=== PATIENT | female | born 2005 | race Caucasian/White ===

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

== ENCOUNTER 2023-02-06 22:25 | Emergency (ER) | payer OTHER, MEDICAID ==
--- NOTE | 2023-02-06 23:38 | ED ---
General Adult HPI - General Source: patient, RN notes reviewed Mode of arrival: ambulatory Limitations: no limitations <Minerva Colon - Last Filed: 02/07/23 01:39> <Waldemar Hargrove - Last Filed: 02/07/23 14:27> <Darren Carter - Last Filed: 02/07/23 20:38> - General Chief complaint: Psychiatric Symptoms Stated complaint: Mental Health Time Seen by Provider: 02/06/23 23:13 - History of Present Illness Initial comments: 17-year-old female with no significant past medical history presents the emergency department with a chief complaint of psychiatric evaluation. Patient reports increased stress at home regarding her family. She reports that she would like a psychiatric evaluation to prove that she is safe to go home. She denies any suicidal or homicidal ideation. Denies visual or auditory hallucinations. Denies illicit drug use. Denies recent alcohol use. She does endorse having occasional nausea however she attributes this to stress. (Minerva Colon) - Related Data Home Medications Medication Instructions Recorded Confirmed No Known Home Medications 09/09/22 02/07/23 Allergies Allergy/AdvReac Type Severity Reaction Status Date / Time diclofenac Allergy Rash/Hives Verified 02/07/23 08:21 egg Allergy Unknown Verified 02/07/23 08:21 Penicillins Allergy Unknown Verified 02/07/23 08:21 Childhood cortisone AdvReac "lost Verified 02/07/23 08:21 pigment at injection site" prednisone AdvReac aggressive Verified 02/07/23 08:21 Review of Systems ROS Other: All systems not noted in ROS Statement are negative. <Minerva Colon - Last Filed: 02/07/23 01:39> ROS Other: All systems not noted in ROS Statement are negative. <Waldemar Hargrove - Last Filed: 02/07/23 14:27> ROS Other: All systems not noted in ROS Statement are negative. <Darren Carter - Last Filed: 02/07/23 20:38> ROS Statement: Those systems with pertinent positive or pertinent negative responses have been documented in the HPI. Past Medical History Past Medical History: No Reported History History of Any Multi-Drug Resistant Organisms: None Reported Past Surgical History: Ear Surgery Past Anesthesia/Blood Transfusion Reactions: No Reported Reaction Additional Past Anesthesia/Blood Transfusion Reaction / Comment(s): "WOKE UP EARLY" Past Psychological History: Anxiety, Depression Smoking Status: Never smoker Past Alcohol Use History: None Reported Past Drug Use History: Marijuana - Past Family History Mother Family Medical History: Deep Vein Thrombosis (DVT) Additional Family Medical History / Comment(s): AND MATERNAL GRANDFATHER <Minerva Colon - Last Filed: 02/07/23 01:39> General Exam Limitations: no limitations <Minerva Colon - Last Filed: 02/07/23 01:39> - General Exam Comments Initial Comments: General: Alert, in no acute distress Head: atraumatic normocephalic. Eyes PERRL, EOMI intact, mucous membranes moist Respiratory: Lungs clear to auscultation bilaterally Cardiovascular: Heart rate regular rate and rhythm Abdominal: Soft without guarding or rebound Extremities: Normal inspection with full range of motion and normal capillary refill Neuroogic: alert and oriented 3, CN II-XII intact, able to ambulate with steady gait Skin: warm dry and intact with normal color (Minerva Colon) Course <Minerva Colon - Last Filed: 02/07/23 01:39> Vital Signs 02/06/23 02/07/23 02/07/23 22:26 07:05 13:34 Temperature 98.4 F 98.6 F 98.6 F Pulse Rate 65 46 L 85 Respiratory 16 19 18 Rate Blood Pressure 194/108 115/75 117/65 O2 Sat by Pulse 99 98 99 Oximetry 02/07/23 19:58 Temperature 98.4 F Pulse Rate 98 Respiratory 18 Rate Blood Pressure 118/82 O2 Sat by Pulse 99 Oximetry - Reevaluation(s) Reevaluation #1: 02/07/23 12:15 patient medically cleared. Patient agreeable with the plan for awaiting psychiatric evaluation when the EPS nurse in the AM. (Minerva Colon) Medical Decision Making <Minerva Colon - Last Filed: 02/07/23 01:39> - Lab Data Result diagrams: 02/07/23 16:27 02/07/23 16:27 <Darren Carter - Last Filed: 02/07/23 20:38> - Medical Decision Making Was pt. sent in by a medical professional or institution (, PA, [facility], urgent care, hospital, or [facility]...) When possible be specific @ -[No] Did you speak to anyone other than the patient for history (EMS, parent, family, police, friend...)? What history was obtained from this source @ -[No] Did you review nursing and triage notes (agree or disagree)? Why? @ -[I reviewed and agree with nursing and triage notes] Were old charts reviewed (outside hosp., previous admission, EMS record, old EKG, old radiological studies, urgent care reports/EKG's, [facility] records)? Report findings @ -[No old charts were reviewed] Differential Diagnosis (chest pain, altered mental status, abdominal pain women, abdominal pain men, vaginal bleeding, weakness, fever, dyspnea, syncope, headache, dizziness, GI bleed, back pain, seizure, CVA, palpatations, mental health, musculoskeletal)? @ -[not applicable] EKG interpreted by me (3pts min.). @ -[As above] X-rays interpreted by me (1pt min.). @ -[None done] CT interpreted by me (1pt min.). @ -[None done] U/S interpreted by me (1pt. min.). @ -[None done] What testing was considered but not performed or refused? (CT, X-rays, U/S, labs)? Why? @ -[None] What meds were considered but not given or refused? Why? @ -[None] Did you discuss the management of the patient with other professionals ( professionals i.e. , PA, [facility], lab, RT, psych nurse, social media editor, riding double, teacher, senior vice president and chief information officer, rn field case manager)? Give summary @ -[No] Was smoking cessation discussed for >3mins.? @ -[No] Was critical care preformed (if so, how long)? @ -[No] Were there social determinants of health that impacted care today? How? (Homelessness, low income, unemployed, alcoholism, drug addiction, t ransportation, low edu. Level, literacy, decrease access to med. care, long term, rehab)? @ -[No] Was there de-escalation of care discussed even if they declined (Discuss DNR or withdrawal of care, Hospice)? DNR status @ -[No] What co-morbidities impacted this encounter? (DM, HTN, Smoking, COPD, CAD, Cancer, CVA, ARF, Chemo, Hep., AIDS, mental health diagnosis, sleep apnea, morbid obesity)? @ -[None] Was patient admitted / discharged? Hospital course, mention meds given and route, prescriptions, significant lab abnormalities, going to OR and other pertinent info. @ -Disposition pending. This is a 17-year-old female who presents the emergency department with psychiatric evaluation. Patient had a thorough history and physical exam performed which was unremarkable. Heart rate regular rate and rhythm, lungs clear to auscultation bilaterally abdomen soft nontender patient agreeable with the plan to await EPS evaluation in the a.m. Discussed with SERA Batres who agrees with the plan of care. (Minerva Colon) Patient seen by mental health services plans for admission or transfer for psychiatric inpatient care. Patient reevaluated by myself. Positive clinical certificate completed. Diagnosis: Depression Acute (Darren Carter) - Lab Data Lab Results 02/07/23 02/07/23 02/07/23 Range/Units 12:35 12:35 16:27 WBC 9.8 (4.0-11.0) k/uL RBC 4.71 (3.80-5.40) m/uL Hgb 14.5 (11.4-16.0) gm/dL Hct 42.8 (34.0-46.0) % MCV 90.9 (80.0-100.0) fL MCH 30.9 (25.0-35.0) pg MCHC 33.9 (31.0-37.0) g/dL RDW 12.3 (11.5-15.5) % Plt Count 297 (150-450) k/uL MPV 7.9 Neutrophils % (Manual) 49 % Lymphocytes % (Manual) 38 % Monocytes % (Manual) 9 % Eosinophils % (Manual) 4 % Neutrophils # (Manual) 4.80 (1.3-7.7) k/uL Lymphocytes # (Manual) 3.72 (1.0-4.8) k/uL Monocytes # (Manual) 0.88 (0-1.0) k/uL Eosinophils # (Manual) 0.39 (0-0.7) k/uL Nucleated RBCs 0 (0-0) /100 WBC Manual Slide Review Performed Reactive Lymphocytes Present Sodium (137-145) mmol/L Potassium (3.5-5.1) mmol/L Chloride (98-107) mmol/L Carbon Dioxide (22-30) mmol/L Anion Gap mmol/L BUN (7-17) mg/dL Creatinine (0.52-1.04) mg/dL Est GFR (CKD-EPI)AfAm (>60 ml/min/1.73 sqM) Est GFR (CKD-EPI)NonAf (>60 ml/min/1.73 sqM) Glucose (74-99) mg/dL Calcium (8.4-10.2) mg/dL Total Bilirubin (0.2-1.3) mg/dL AST (14-36) U/L ALT (4-34) U/L Alkaline Phosphatase (38-126) U/L Total Protein (6.3-8.2) g/dL Albumin (3.5-5.0) g/dL Urine Color Yellow Urine Appearance Cloudy H (Clear) Urine pH 6.5 (5.0-8.0) Ur Specific [place] 1.017 (1.001-1.035) Urine Protein Trace H (Negative) Urine Glucose (UA) Negative (Negative) Urine Ketones Negative (Negative) Urine Blood Negative (Negative) Urine Nitrite Negative (Negative) Urine Bilirubin Negative (Negative) Urine Urobilinogen <2.0 (<2.0) mg/dL Ur Leukocyte Esterase Trace H (Negative) Urine WBC 15 H (0-5) /hpf Ur Squamous Epith Cells 12 H (0-4) /hpf Urine Bacteria Many H (None) /hpf Urine Mucus Many H (None) /hpf Urine HCG, Qual Not Detected (Not Detectd) Urine Opiates Screen Not Detected (NotDetected) Ur Oxycodone Screen Not Detected (NotDetected) Urine Methadone Screen Not Detected (NotDetected) Ur Propoxyphene Screen Not Detected (NotDetected) Ur Barbiturates Screen Not Detected (NotDetected) U Tricyclic Antidepress Not Detected (NotDetected) Ur Phencyclidine Scrn Not Detected (NotDetected) Ur Amphetamines Screen Not Detected (NotDetected) U Methamphetamines Scrn Not Detected (NotDetected) U Benzodiazepines Scrn Detected H (NotDetected) Urine Cocaine Screen Not Detected (NotDetected) U Marijuana (THC) Screen Detected H (NotDetected) Coronavirus (PCR) (Not Detectd) 02/07/23 02/07/23 Range/Units 16:27 16:27 WBC (4.0-11.0) k/uL RBC (3.80-5.40) m/uL Hgb (11.4-16.0) gm/dL Hct (34.0-46.0) % MCV (80.0-100.0) fL MCH (25.0-35.0) pg MCHC (31.0-37.0) g/dL RDW (11.5-15.5) % Plt Count (150-450) k/uL MPV Neutrophils % (Manual) % Lymphocytes % (Manual) % Monocytes % (Manual) % Eosinophils % (Manual) % Neutrophils # (Manual) (1.3-7.7) k/uL Lymphocytes # (Manual) (1.0-4.8) k/uL Monocytes # (Manual) (0-1.0) k/uL Eosinophils # (Manual) (0-0.7) k/uL Nucleated RBCs (0-0) /100 WBC Manual Slide Review Reactive Lymphocytes Sodium 139 (137-145) mmol/L Potassium 4.0 (3.5-5.1) mmol/L Chloride 103 (98-107) mmol/L Carbon Dioxide 24 (22-30) mmol/L Anion Gap 12 mmol/L BUN 8 (7-17) mg/dL Creatinine 0.66 (0.52-1.04) mg/dL Est GFR (CKD-EPI)AfAm >90 (>60 ml/min/1.73 sqM) Est GFR (CKD-EPI)NonAf >90 (>60 ml/min/1.73 sqM) Glucose 96 (74-99) mg/dL Calcium 10.1 (8.4-10.2) mg/dL Total Bilirubin 0.8 (0.2-1.3) mg/dL AST 26 (14-36) U/L ALT 22 (4-34) U/L Alkaline Phosphatase 57 (38-126) U/L Total Protein 8.1 (6.3-8.2) g/dL Albumin 4.8 (3.5-5.0) g/dL Urine Color Urine Appearance (Clear) Urine pH (5.0-8.0) Ur Specific [place] (1.001-1.035) Urine Protein (Negative) Urine Glucose (UA) (Negative) Urine Ketones (Negative) Urine Blood (Negative) Urine Nitrite (Negative) Urine Bilirubin (Negative) Urine Urobilinogen (<2.0) mg/dL Ur Leukocyte Esterase (Negative) Urine WBC (0-5) /hpf Ur Squamous Epith Cells (0-4) /hpf Urine Bacteria (None) /hpf Urine Mucus (None) /hpf Urine HCG, Qual (Not Detectd) Urine Opiates Screen (NotDetected) Ur Oxycodone Screen (NotDetected) Urine Methadone Screen (NotDetected) Ur Propoxyphene Screen (NotDetected) Ur Barbiturates Screen (NotDetected) U Tricyclic Antidepress (NotDetected) Ur Phencyclidine Scrn (NotDetected) Ur Amphetamines Screen (NotDetected) U Methamphetamines Scrn (NotDetected) U Benzodiazepines Scrn (NotDetected) Urine Cocaine Screen (NotDetected) U Marijuana (THC) Screen (NotDetected) Coronavirus (PCR) Not Detected (Not Detectd) Disposition <Minerva Colon - Last Filed: 02/07/23 01:39> Is patient prescribed a controlled substance at d/c from ED?: No Time of Disposition: 14:28 - Out of Hospital Transfer - Req. Specs Out of Hospital Transfer - Requested Specifics: Psychiatric Non-ICU (Transfer for further psychiatric care) <Waldemar Hargrove - Last Filed: 02/07/23 14:27> Is patient prescribed a controlled substance at d/c from ED?: No <Darren Carter - Last Filed: 02/07/23 20:38> Clinical Impression: Homicidal ideations, Acute psychosis, Depression Disposition: TRANSFER TO PSYCH HOSP/UNIT Condition: Stable Referrals: [place] Neri, [Primary Care Provider] - 1-2 days
[2023-02-07] MEDS ORDERED: ALPRAZolam 0.25 MG TAB PO STA ×2 (01:22→20:16)
[2023-02-07] MEDS ORDERED: MELATONIN 3 MG TABLET PO ONE (01:22)
[2023-02-07] MEDS ORDERED: LORazepam 1 MG TAB PO STA (12:04)
[2023-02-07 12:59] LABS: Appearance,Urine Cloudy (Clear); Bacteria,Urine Many /hpf; Bilirubin,Urine Negative (Negative); Blood,Urine Negative (Negative); Color,Urine Yellow; Glucose,Urine (UA) Negative (Negative); Ketones,Urine Negative (Negative); Leukocyte Esterase,Urine Trace (Negative); Mucus,Urine Many /hpf; Nitrite,Urine Negative (Negative); PH, Urine 6.5 (5.0-8.0); Protein,Urine Trace (Negative); Specific Gravity,Urine 1.017 (1.001-1.035); Squamous Epithelial Cell,Urine 12 /hpf (0-4); Urobilinogen,Urine <2.0 mg/dL (<2.0); WBC,Urine 15 /hpf (0-5)
[2023-02-07 13:00] LABS: Amphetamine Screen,Urine Not Detected (NotDetected); Barbiturate Screen,Urine Not Detected (NotDetected); Benzodiazepines Screen,Urine Detected (NotDetected); Cocaine Screen,Urine Not Detected (NotDetected); Methadone Screen, Urine Not Detected (NotDetected); Opiate Screen,Urine Not Detected (NotDetected); Oxycodone Screen, Urine Not Detected (NotDetected); Phencyclidine Screen,Urine Not Detected (NotDetected); Tricyclic Antidepressant,Urine Not Detected (NotDetected); Urn Cannabinoid Scrn Detected (NotDetected)
[2023-02-07 13:37] VITALS: RESP 18
[2023-02-07 16:39] LABS: HCT 42.8 % (34.0-46.0); HGB 14.5 gm/dL (11.4-16.0); MCH 30.9 pg (25.0-35.0); MCHC 33.9 g/dL (31.0-37.0); MCV 90.9 fL (80.0-100.0); Mean Platelet Volume 7.9; Platelet Count 297 k/uL (150-450); RBC 4.71 m/uL (3.80-5.40); RDW 12.3 % (11.5-15.5); WBC 9.8 k/uL (4.0-11.0)
[2023-02-07 16:59] LABS: ALT 22 U/L (4-34); AST 26 U/L (14-36); African American GFR (CKD) >90 (>60 ml/min/1.73 sqM); Albumin 4.8 g/dL (3.5-5.0); Alkaline Phosphatase 57 U/L (38-126); Anion Gap 12 mmol/L; Blood Urea Nitrogen 8 mg/dL (7-17); Calcium 10.1 mg/dL (8.4-10.2); Carbon Dioxide 24 mmol/L (22-30); Chloride 103 mmol/L (98-107); Glucose 96 mg/dL (74-99); Non-African American GFR(CKD) >90 (>60 ml/min/1.73 sqM); Sodium 139 mmol/L (137-145); Total Bilirubin 0.8 mg/dL (0.2-1.3); Total Protein 8.1 g/dL (6.3-8.2)
[2023-02-07 17:13] LABS: Eosinophils # (M) 0.39 k/uL (0-0.7); Lymphocytes # (M) 3.72 k/uL (1.0-4.8); Monocytes # (M) 0.88 k/uL (0-1.0); Neutrophils % (M) 49 %; Nucleated Red Blood Cells 0 /100 WBC (0-0); Total Cells Counted 100
[2023-02-07 17:14] LABS: Reactive Lymphocytes Present
[2023-02-07 19:59] VITALS: BP 118/82; PULSE 98; TEMP 98.4
[2023-02-07] MEDS ORDERED: MELATONIN 3 MG TABLET PO SCH (21:00)
== END 2023-02-07 22:30 ==
LOC: EC 22:25
DX: R45.851 Suicidal ideations (principal); F23 Brief psychotic disorder; F32.A Depression, unspecified; F12.90 Cannabis use, unspecified, uncomplicated; Z86.59 Personal history of other mental and behavioral disorders; Z88.0 Allergy status to penicillin; Z88.8 Allergy status to other drugs, medicaments and biological substances; Z91.012 Allergy to eggs; Z20.822 Contact with and (suspected) exposure to COVID-19
CPT/HCPCS: 36415; 80053; 80306; 81001; 81025; 82075; 85025; 87635; 99285

== ENCOUNTER → 2023-03-08 | Outpatient (CLI) | payer OTHER ==
[2023-03-08 15:30] LABS: ALT 44 U/L (8-44); AST 24 U/L (13-35); Albumin 4.7 g/dL (3.8-4.9); Albumin/Globulin Ratio 1.74 Ratio (1.60-3.17); Alkaline Phosphatase 61 U/L (41-126); BUN/Creat Ratio 35.43 Ratio (12.00-20.00); Blood Urea Nitrogen 24.8 mg/dL (9.0-27.0); Calcium 10.3 mg/dL (8.7-10.3); Chloride 100 mmol/L (96-109); Globulin 2.7 g/dL (1.6-3.3); Glucose 89 mg/dL (70-110); Potassium 4.8 mmol/L (3.5-5.5); Sodium 140 mmol/L (135-145); Total Bilirubin 0.3 mg/dL (0.3-1.2); Total Protein 7.4 g/dL (6.2-8.2)
[2023-03-08 18:34] LABS: Valproic Acid (Depakene) 51.8 UG/ML (50.0-100.0)
== END | disposition home or self-care (01) ==
LOC: LABWHC1 08:52
PROVIDERS: ATTEND Psychiatry & Neurology Psychiatry
DX: Z51.81 Encounter for therapeutic drug level monitoring (principal); Z79.899 Other long term (current) drug therapy
CPT/HCPCS: 36415; 80053; 80164; 80299; 83036

== ENCOUNTER 2023-05-08 08:55 | Emergency (ER) | payer OTHER ==
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
[2023-05-08] MEDS: ACETAMINOPHEN TAB 500 MG TAB PO STA (09:32)
[2023-05-08 09:33] VITALS: RESP 18; TEMP 97.9
[2023-05-08] MEDS: ORPHENADRINE 30 MG/ML 2 ML VIAL IM STA (09:33)
[2023-05-08] MEDS: LIDOCAINE 4% PATCH TOPICAL ONE (09:36)
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
[2023-05-08 11:03] VITALS: BP 117/62; PULSE 82
[2023-05-08] MEDS: traMADol 50 MG STARTER PACK 3 TAB BTL PO STA (11:18)
[2023-05-08] MEDS: MORPHINE SULFATE 2 MG/ML SYRINGE IM STA (11:19)
== END 2023-05-08 12:10 | disposition home or self-care (01) ==
LOC: EC 08:55
DX: S30.0XXA Contusion of lower back and pelvis, initial encounter (principal); F12.90 Cannabis use, unspecified, uncomplicated; Z86.59 Personal history of other mental and behavioral disorders; Z88.0 Allergy status to penicillin; Z88.8 Allergy status to other drugs, medicaments and biological substances; Z91.012 Allergy to eggs; Z88.1 Allergy status to other antibiotic agents; V89.2XXA Person injured in unspecified motor-vehicle accident, traffic, initial encounter; Y92.410 Unspecified street and highway as the place of occurrence of the external cause
CPT/HCPCS: 72070; 72100; 72125; 70450; 99284; 96372 ×2; J2360; J2270

== ENCOUNTER → 2024-01-15 | Outpatient (CLI) | payer BC, OTHER ==
--- NOTE | 2024-01-15 16:48 | US ---
EXAMINATION TYPE: US pelvis complete transvag DATE OF EXAM: 01/15/2024 COMPARISON: NONE CLINICAL INDICATION: Female, 18 years old with history of N92.6 IRREG MENSTRATION; dysmenorrhea, rt s maddie pain TECHNIQUE: Transvaginal (TV) and Transabdominal (TA) . Transabdominal grayscale, color Doppler and spectral Doppler sonographic images of the pelvis were acquired. Transvaginal sonographic images wer e medically necessary to better assess the following anatomy: Ovaries FINDINGS: Date of LMP: 01/01/24 EXAM MEASUREMENTS: Uterus: 7.6x3.3x5.1 cm Endometrial Stripe: 1.5 cm Right Ovary: 3.4x1.1x2.5x4.8 cm Left Ovary: 3.8x1.4x2.4 cm 1. Uterus: Anteverted arcuate uterus 2. Endometrium: wnl 3. Right Ovary: wnl 4. Left Ovary: wnl 5. Bilateral Adnexa: wnl 6. Posterior cul-de-sac: significant amount of free fluid at pouch of keon/rt adnexa Anteverted uterus with arcuate morphology. Endometrial thickness normal limits. Both ovaries appear u nremarkable. Moderate amount of simple appearing fluid within the pouch of Keon and right adnexa. IMPRESSION: 1. Moderate amount of simple appearing free fluid within the pouch of Keon and right adnexa. Proba daron related to ruptured ovarian cyst. 2. Normal endometrial thickness. [facility], , 01/15/2024 4:45 PM
== END | disposition home or self-care (01) ==
LOC: RADUSWWP 12:56
PROVIDERS: ATTEND Family Medicine
DX: N92.6 Irregular menstruation, unspecified (principal)
CPT/HCPCS: 76830; 76856